=== PATIENT | male | born 1950 | race Caucasian/White ===

== ENCOUNTER → 2024-09-11 06:22 | Day surgery (SDC) | payer MEDICARE, SELFPAY | LOC: GI 06:22 | PROVIDERS: ATTENDING PHYSICIAN Internal Medicine; FAMILY PHYSICIAN Family Medicine | DX: Z12.11 Encounter for screening for malignant neoplasm of colon (principal); R19.5 Other fecal abnormalities; Z53.8 Procedure and treatment not carried out for other reasons; K57.30 Diverticulosis of large intestine without perforation or abscess without bleeding | CPT/HCPCS: G0121 ==

== ENCOUNTER → 2024-09-12 06:18 | Day surgery (SDC) | payer MEDICARE, SELFPAY | LOC: GI 06:18 | PROVIDERS: ATTENDING PHYSICIAN Internal Medicine Gastroenterology | DX: Z12.11 Encounter for screening for malignant neoplasm of colon (principal); R19.5 Other fecal abnormalities; K57.30 Diverticulosis of large intestine without perforation or abscess without bleeding; K64.8 Other hemorrhoids; K55.20 Angiodysplasia of colon without hemorrhage; D12.0 Benign neoplasm of cecum | CPT/HCPCS: 45385; 88305 ==

== ENCOUNTER 2024-12-17 06:33 | Day surgery (SDC) | payer MEDICARE, SELFPAY ==
[2024-12-17 08:53] VITALS: BMI 16.9
[2024-12-17 08:54] VITALS: BMI 16.9
[2024-12-17 12:15] VITALS: BP 143/74
[2024-12-17 12:30] VITALS: BP 143/89
[2024-12-17 12:39] VITALS: BP 124/75
== END 2024-12-17 13:03 | disposition home or self-care (01) ==
LOC: SDS 06:33
PROVIDERS: ATTENDING PHYSICIAN Internal Medicine Gastroenterology; FAMILY PHYSICIAN Family Medicine
DX: D12.2 Benign neoplasm of ascending colon (principal); D12.3 Benign neoplasm of transverse colon; D12.5 Benign neoplasm of sigmoid colon; K63.5 Polyp of colon; K57.30 Diverticulosis of large intestine without perforation or abscess without bleeding; K64.0 First degree hemorrhoids; Q43.8 Other specified congenital malformations of intestine
CPT/HCPCS: 45385; 45390; 88305; C1726

== ENCOUNTER → 2025-03-04 13:57 | Outpatient (REF) | payer MEDICARE, SELFPAY | LOC: RAD 13:57 | PROVIDERS: ATTENDING PHYSICIAN Family Medicine | DX: E78.5 Hyperlipidemia, unspecified (principal); R97.20 Elevated prostate specific antigen [PSA]; N40.0 Benign prostatic hyperplasia without lower urinary tract symptoms | CPT/HCPCS: 76872 ==

== ENCOUNTER 2025-05-19 23:31 | Inpatient (IN) | payer MEDICARE, SELFPAY ==
[2025-05-19] VITALS (9 sets, daily range): BP systolic 99–146; BP diastolic 58–101; BMI 17.7
[2025-05-19 17:54] LABS: Hematocrit 43.9 % (39.0-52.0); Hemoglobin 14.7 g/dL (13.0-18.0); Mean Corp Hgb Conc. 33.5 g/dL (33.0-37.0); Mean Corpuscular Volume 86.4 fL (80.0-94.0); Nucleated Red Blood Cells % 0 % (-); Platelet Count 120 10^3/uL (130-400); Red Cell Dist. Width 13.4 % (11.5-14.5)
[2025-05-19 18:09] LABS: ALT (SGPT) 36 U/L (0-50); AST (SGOT) 77 U/L (17-59); Albumin 4.5 g/dl (3.5-5.0); Alkaline Phosphatase 67 U/L (38-126); Blood Urea Nitrogen 15 mg/dl (9-20); Calcium 9.2 mg/dl (8.4-10.2); Carbon Dioxide 23 mmol/L (22-30); Chloride 105 mmol/L (98-107); Glucose 145 mg/dl (70-99); Potassium 4.1 mmol/L (3.5-5.1); Sodium 138 mmol/L (135-145); Total Protein 7.4 g/dl (6.3-8.2); eGFR > 60.00
[2025-05-19 18:10] LABS: Troponin I < 0.012 ng/ml
[2025-05-19] MEDS: DUONEB 3 ML INH (20:08)
--- NOTE | 2025-05-19 20:11 | ED.GENMED ---
History of Present Illness
General
Chief Complaint: Breathing Problem
Source: patient
Exam Limitations: none
Time Seen by Provider: 05/19/25 19:48
History of Present Illness
History of Present Illness:
75yoM with a history of COPD and prior history of lung cancer currently in remission presenting for evaluation of shortness of breath. Patient reports cough, wheezing, and shortness of breath over the past week. Cough is productive of green
sputum. He has been having difficulty sleeping due to his symptoms and will wake up in the middle of the night short of breath. He is also having some right-sided chest discomfort with coughing. He had chills earlier but denies any fevers. He
has a history of bronchitis and this feels similar. He has been using his Anoro inhaler without much relief.
Past History
Past History
ED Past Medical History: Other (IBS, back pain)
Social History
Tobacco: Smoker
Living: with family
Employment: Retired
Phy Exam
General Physical Exam
General Presentation: no apparent distress
General Skin: warm and dry
General Habitus: normal and elderly
General Mental: alert
ENT Exam
ENT Exam: normocephalic
Cardiovascular Exam
Cardiovascular Exam: no edema and tachycardia
Pulmonary Exam
Pulmonary Exam: generalized wheezing and other (Rhonchi and wheezing noted)
Neurological Exam
Neurological Exam: alert
Lexi Coma Scale
Eye Opening: Spontaneous
Verbal Response: Oriented
Motor Response: Obeys Commands
GCS Total Score: 15
Skin Exam
Skin Exam: normal color and warm/dry
Psychiatric Exam
Psychiatric Exam: normal mood/affect
Scores
Heart Failure Risk
Heart Failure Risk Score: Not Applicable
Course
Orders/Labs/Results
Orders:
Orders
05/19/25 17:33
Electrocardiogram (*1) Urgent
Reason for Study: Other
Other Reason for Exam: Respiratory Distress
EKG- Treatment ONCE
CR Chest - 2 Views Urgent
Comment:
Reason For Exam: respiratory distress
05/19/25 17:38
Complete Blood Count/With Diff Urgent
Comprehensive Metabolic Panel Urgent
NT-proBNP Urgent
Troponin I Urgent
05/19/25 19:54
Cardiac Monitoring- Treatment ONCE
05/19/25 20:02
CT Chest PE Study Urgent
Comment:
Reason For Exam: SOB, abnormal CXR
Ipratropium/Albuterol Sulfate [Duoneb] 3 ml INH R NOW STA
05/19/25 20:18
COVID-19 Antigen Urgent
Source: Nasal Swab
Influenza A+B Rapid Molecular Urgent
GERMAN Source: Nasal Swab
Specimen Description:
05/19/25 22:06
Cefepime HCl [Maxipime] 2,000 mg IV NOW STA
05/19/25 22:27
Cefepime HCl [Maxipime] 2,000 mg .ROUTE .STK-MED ONE
05/19/25 23:14
Procalcitonin Routine
If negative, will antibiotics be d/c'd or not started: Yes
Does the patient have renal or hepatic impairment?: No
Any recent (w/in 48 hrs) physiologic stress (CPR, rhabdo): No
05/19/25 23:19
Admit/Transfer Patient As Directed
Co-Sign Provider:
Level of Care: Inpatient admission
Assign to:: Medical/Surgical
Physician / Group: [email or web address]
Diagnosis: Influenza B, PNA, COPD
Reason for Hospitalization: Influenza B, PNA, COPD
Expected length of stay greater than two midnights?: Yes
ELOS- Estimated Length of Stay in days: 5
I certify the patient meets the requirements for IP care: Yes
05/19/25 23:22
Code Status As Directed
Resuscitation Status: Full Code
Abnormal Lab Results
05/19/25
17:38
Plt Count 120 L 10^3/uL
(130-400)
MPV 11.2 H fL
(7.4-10.4)
Absolute Lymphs (auto) 0.6 L 10^3/uL
(1.2-3.4)
Neutrophils % 81.0 H %
(42.2-75.2)
Lymphocytes % 9.6 L %
(20.5-51.1)
Glucose 145 H mg/dl
(70-99)
Total Bilirubin 1.4 H mg/dl
(0.2-1.3)
AST 77 H U/L
(17-59)
05/19/25 17:38
05/19/25 17:38
Vital Signs
Initial and Last Documented VS:
Initial Vital Signs
Temp Pulse Resp BP Pulse Ox
98.6 F 84 22 146/98 96
05/19/25 17:30 05/19/25 17:30 05/19/25 17:30 05/19/25 17:30 05/19/25 17:30
Last Documented Vital Signs
Temp Pulse Resp BP Pulse Ox
98.6 F 98 24 108/83 92
05/19/25 17:30 05/20/25 00:00 05/20/25 00:00 05/19/25 23:00 05/20/25 00:00
MDM/Problems Addressed
Differential Diagnosis Includes:
75yoM here with SOB and cough x 1 week. Hx of COPD and prior hx of lung cancer. He is tachycardic with HR in the 100-110 range on initial exam. There is wheezing and rhonchi on lung exam. Differential diagnosis includes but is not limited to: viral
illness, bronchitis, pneumonia, COPD exacerbation
Initial ED plan: Workup initiated in triage. EKG shows what appears to be multifocal atrial tachycardia. Troponin WNL. CXR shows a RUL consolidation per my interpretation. Will check COVID/flu swab and proceed with CTA chest. DuoNeb and reassess.
*Pulse Oximetry
SaO2: 96
Oxygen Mode of Delivery: Room air
Patient hypoxic: no (96%)
*EKG
Interpreted by ED Provider?: Yes
EKG Intrepretation Date: 05/19/25
Heart Rate: 117
Rate: tachycardiac
Rhythm: other (Suspected multifocal atrial tachycardia)
[place]: left axis deviation
Interval: normal interval
QRS Pattern: normal QRS
Ischemia: T-wave inversion (aVL)
*Critical Care Note
Total Time (30-74mins, 75-104mins- exclusive of procedures): Not Applicable
Update Note
Update Note:
Patient is positive for influenza B. CT shows complete occlusion of R upper lobe bronchus and R middle lobe bronchus with postobstructive atelectasis of R upper lobe and pneumonia of R middle lobe. IV cefepime and vancomycin ordered. Patient
admitted for further management.
ED Attending Note
-
Portions of this chart may have been created with voice recognition software.� Occasional wrong word or��sound alike� substitutions may have occurred due to the inherent limitations of voice recognition software.
Discharge Plan
Departure
Patient Disposition: Admit
Date of Disposition: 05/19/25
Time of Disposition: 22:42
Presentation/result/management discussed w/ accepting MD/DO: Hospitalist
Discharge Problem:
Influenza B, Right middle lobe pneumonia, Bronchial obstruction
Interventions
Interventions:
*Risk Screen - Suicide Last Done: 05/19/25 17:30
*Neglect/Abuse Screening Last Done: 05/19/25 17:30
ED- Cardiac Assessment Last Done: 05/19/25 23:02
ED- Pulmonary Assessment Last Done: 05/19/25 23:02
[2025-05-19 20:39] LABS: COVID-19 Antigen Negative (Negative)
[2025-05-19] MEDS: MAXIPIME 2000 MG IV (22:27)
--- NOTE | 2025-05-19 23:16 | HPS.HSE ---
Family Physician
-
Family Physician: John Hogue, DO
Chief Complaint
-
SoB, productive cough
History of Present Illness
HPI
75M HX Ca Lung in remission, COPD, not on Home O2 seen at ER:
- for evaluation of shortness of breath, cough, wheezing over the past week.
- wake up in the middle of the night short of breath
- having some right-sided chest discomfort with coughing.
- chills earlier but denies any fevers.
- HX bronchitis and this feels similar- using his Anoro inhaler without much relief.
Medical History
Past Medical History
Past Medical History: Reports Cancer (lung CA in remission ), COPD, Hypercholesterolemia, Hypothyroidism and Psychiatric (anxiety )
Past Surgical History: Reports Other
Social History
Alcohol: None
Family History
Family History: Not pertinent
Allergies / Home Medications
Allergies reflects when Allergies were last updated in [facility].
Home Medications with original date entered in [facility]
Allergy/Medication List:
Allergies
Allergy/AdvReac Type Severity Reaction Status Date / Time
acetaminophen (From Percocet) Allergy Unknown Verified 12/17/24 08:24
oxycodone (From Percocet) Allergy Itching Verified 12/17/24 08:24
Home Medications
alprazolam 0.25 mg tablet 0.25 mg PO DAILY 12/17/24
bisacodyl 5 mg tablet,delayed release 15 mg PO ONCE PRN constipation 12/17/24
ibuprofen 400 mg tablet 400 mg PO Q48H 12/17/24
levothyroxine 112 mcg tablet 112 mcg PO DAILY 12/17/24
levothyroxine 125 mcg tablet 125 mcg PO DAILY 12/17/24
rosuvastatin 20 mg tablet 20 mg PO DAILY 12/17/24
umeclidinium 62.5 mcg-vilanterol 25 mcg/actuation powdr for inhalation (Anoro Ellipta) 1 inhalation DAILY 12/17/24
Review of Systems
-
Constitutional: Reports No Symptoms
EENT: Reports No Symptoms
Respiratory: Reports See HPI and Trouble Breathing
Cardiac: Reports No Symptoms
Abdomen/GI: Reports No Symptoms
: Reports No Symptoms
Musculoskeletal: Reports No Symptoms
Skin: Reports No Symptoms
Neurological: Reports No Symptoms
Endocrine: Reports No Symptoms
Hematologic/Lymphatic: Reports No Symptoms
Psych: Reports No Symptoms
Physical Exam
Vital Signs
Vital Signs
Temp Pulse Resp BP Pulse Ox
98.6 F 101 26 99/58 92
05/19/25 17:30 05/19/25 22:15 05/19/25 22:15 05/19/25 22:00 05/19/25 22:15
Physical Exam
General: Well Developed, Well Nourished and No Apparent Distress
HEENT: NormoCephalic, Moist mucous membranes and Atraumatic
Respiratory: Clear
Cardiac: S1/S2 and Regular Rhythm; No Murmur or Rub
GI: Soft, Non Tender, Non Distended and Normal Bowel Sounds; No Organomegaly
Rectal: Deferred by Provider
Musculoskeletal: No Clubbing, No Cyanosis and No Edema
Skin: No Rash
Neuro: Nonfocal/grossly intact
Laboratory Results
-
05/19/25 17:38
05/19/25 17:38
Laboratory Results
Total Bilirubin 1.4 mg/dl (0.2-1.3) H 05/19/25 17:38
AST 77 U/L (17-59) H 05/19/25 17:38
ALT 36 U/L (0-50) 05/19/25 17:38
Alkaline Phosphatase 67 U/L (38-126) 05/19/25 17:38
Troponin I < 0.012 ng/ml 05/19/25 17:38
Data Reviewed
-
CT Scan: Report Reviewed by me
Lab Data: Labs Reviewed by me
Impression/Plan
-
Vital Signs
Temp Pulse Resp BP Pulse Ox
98.6 F 101 26 99/58 92
05/19/25 17:30 05/19/25 22:15 05/19/25 22:15 05/19/25 22:00 05/19/25 22:15
Laboratory Tests
05/19/25
17:38
Creatinine 0.7
eGFR > 60.00
Total Bilirubin 1.4 H
AST 77 H
ALT 36
Alkaline Phosphatase 67
Troponin I < 0.012
[id number] Pept 523
CT:
-Complete occlusion of the R upper lobe bronchus
- postobstructive atelectasis in the R upper lobe with severe postobstructive R middle lobe pneumonia.
- severe hyperinflation of the right lower lobe and left lung containing mild centrilobular emphysema.
- Moderate to severe left to right mediastinal shift secondary to right lung volume loss.
- Mild pneumonia in the lingula and left lower lobe.
Layering secretions in the trachea (possibly secondary to aspiration).
04/21/20 TTE
Normal biventricular size and systolic function without regional wall motion abnormality.
Thickened mitral valve leaflets, with prolonged anterior leaflet with prolapse present.
Moderate, eccentric mitral regurgitation.
Compared to prior study of 03/07/07, the mitral regurgitation is
NO PRIR 75M HX hospitalist admission:
ASSESSMENT & PLAN
Pending Rx reconciliation
Acute viral Influenza B POS
NEG Covid
Nl eGFR
- start Tamiflu 75mg BID
CT suggest PNA suspect post obstructive ( RUL, RML)
POS productive cough and SOB
HX Lung CA in remission ??
- cont. IV CFP and Vancomycin for now
- check PCT
- Incentive spirometry
HX COPD
- DuoNebs qid and PRN
- c/w Ano Eclipta
Hypothyroid
- c/w LT4
HLD
- on Stain
Anxiety
- on Xanax daily
DVT Px: LMWH
Full code
IP MS
[2025-05-20] MEDS: TAMIFLU 75 MG PO ×3 (00:53→20:52)
[2025-05-20] MEDS: VANCOCIN 530 MG IV (00:54)
[2025-05-20 01:40] LABS: Procalcitonin 0.31 ng/ml (0.0-0.25)
[2025-05-20] MEDS: MAXIPIME 1000 MG IV ×3 (05:59→17:40)
[2025-05-20 06:36] LABS: Hematocrit 37.9 % (39.0-52.0); Hemoglobin 12.8 g/dL (13.0-18.0); Mean Corp Hgb Conc. 33.8 g/dL (33.0-37.0); Mean Corpuscular Volume 85.2 fL (80.0-94.0); Nucleated Red Blood Cells % 0 % (-); Platelet Count 117 10^3/uL (130-400); Red Cell Dist. Width 13.2 % (11.5-14.5)
[2025-05-20 06:45] LABS: Blood Urea Nitrogen 15 mg/dl (9-20); Calcium 8.9 mg/dl (8.4-10.2); Carbon Dioxide 23 mmol/L (22-30); Chloride 109 mmol/L (98-107); Estimated Creatinine Clearance 103 ml/min; Glucose 115 mg/dl (70-99); Potassium 4.0 mmol/L (3.5-5.1); Sodium 137 mmol/L (135-145); eGFR > 60.00
[2025-05-20] MEDS: DUONEB 3 ML INH ×4 (07:47→19:23)
[2025-05-20 08:22] VITALS: BP 138/80
--- NOTE | 2025-05-20 08:50 | PHA.VAN.IN ---
Assessment
- Assessment
Renal Function: Appears similar to baseline
Concomitant Antimicrobials: cefepime
AUC Dosing Plan
- Dosing Variables
Dosing Weight (kg): 91 (IBW for BMI < 18.5)
Dosing CrCl (ml/min): 103
Vd coefficient (L/kg): 0.7
- Empiric Dosing
Initial / Loading Dose: 1500mg - 05/20 00:54
Maintenance Regimen: Vanc 1250mg Q12H starting at 1800
Estimated AUC (mcg*h/mL): 466
Estimated Peak (mcg*h/mL): 29.7
Estimated Trough (mcg/ml): 11.6
Estimated Half Life (H): 7.7
- Monitoring
No levels ordered at this time: consider levels in next few days
MRSA Screen: Ordered per protocol
Pharmacokinetics Vancomycin I
- -
Patient Age: 75
Patient Sex: Male
Vancomycin Day #: 1
Indication: Pulmonary/Respiratory
Requesting Provider: Dr. Humphreys
Pertinent Antimicrobial Allergies:
no pertinent antibiotic allergies
Height / Weight:
Height 6 ft 6 in
Actual Weight 69.5 kg
IBW in k.4
Pertinent Past Medical History: BMI ~17.7, Lung cancer (remission)
- Vital Signs / Lab Results
Temp Pulse Resp BP Pulse Ox
98.1 F 70 12 138/80 96
05/20/25 08:22 05/20/25 08:22 05/20/25 08:22 05/20/25 08:22 05/20/25 08:22
Lab Results - Hematology
05/19/25 05/20/25
17:38 06:05
WBC 6.5 6.9
Lab Results - Chemistry
05/19/25 05/20/25
17:38 06:05
BUN 15 15
Creatinine 0.7 0.6 L
Estimated Creat Clear 103
Albumin 4.5
05/20/25
01:00
Lactic Acid 1.4
Microbiology Results
05/19/25 20:18 Influenza Types A & B (BRAULIO) - Final
Nasal Swab Influenza B Positive, NAAT
--- NOTE | 2025-05-20 09:28 | CON.PUL ---
Consultation
Consultation Request
Date/Time Consultation Requested: 05/20/202524
Date/Time Consultation Performed: 05/20/2025854
Requesting Provider: Dr. Humphreys
Performing Provider: Dr. Curry
Reason for Consultation: SOB/PNA
Medical History
-
Chief Complaint: SOB
History of Present Illness:
75-year-old M with PMHx of R-sided NSCLC in remission, anxiety, inflammatory bowel disease, Hx of liver abscess, hypothyroidism, HLD and prediabetes who p/w worsening SOB. He uses Anoro at home and his SOB worsened despite this. He has been
coughing as well. In the ER he was afebrile, HR 84, BP 146/98, RR 22 and SpO2 96% on room air. WBC WNL at 6.5, plt 120, troponin negative x1, procal 0.31, and flu swab was positive for Flu-B. CXR showed severe RUL volume loss with a RUL
consolidation. CT chest showed RUL + RML bronchus occlusion, with left to right mediastinal shift due to atelectasis. Pt given cefepime and DuoNebs in ER, and admitted to the hospitalist service with pulmonary consulted for further recommendations.
PMHx: Right lung NSCLC, Hx of COPD, IBD, anxiety, colonic polyps, Hx of hepatic abscess, DDD s/p lumbar discectomy x2, sigmoid diverticulosis, hypothyroidism, HLD, prediabetes
PSHx: Hernia repair, discectomy x2, right eye cataract surgery, detached retina surgery (right eye), oral surgery, prostate biopsy (negative for malignancy - [facility])
Past Medical History
Past Medical History: Other (Above as per HPI)
Past Surgical History: Other (Above as per HPI)
Social History
Tobacco: Former Smoker (quit smoking at age 54)
Alcohol: Occasional
Drug: Marijuana (has a THC card)
Family History
Family History: Cancer (Mother and brother: lung cancer)
Allergies / Home Medications
Allergies
Allergy/AdvReac Type Severity Reaction Status Date / Time
acetaminophen (From Percocet) Allergy Unknown Verified 12/17/24 08:24
oxycodone (From Percocet) Allergy Itching Verified 12/17/24 08:24
Home Medications
�Medication �Instructions �Recorded �Confirmed �Last Taken �Type
alprazolam 0.25 mg tablet 0.25 mg PO DAILYPRN PRN anxiety 12/17/24 05/20/25 12/16/24 21:00 History
ibuprofen 400 mg tablet 400 mg PO DAILYPRN PRN mild pain 12/17/24 05/20/25 12/13/24 History
levothyroxine 112 mcg tablet 112 mcg PO Q48H 12/17/24 05/20/25 12/17/24 06:00 History
levothyroxine 125 mcg tablet 125 mcg PO Q48H 12/17/24 05/20/25 12/16/24 06:00 History
rosuvastatin 20 mg tablet 20 mg PO DAILY 12/17/24 05/20/25 12/16/24 20:00 History
umeclidinium 62.5 mcg-vilanterol 1 inh inhalation R QPM 12/17/24 05/20/25 12/16/24 History
25 mcg/actuation powdr for
inhalation (Anoro Ellipta)
alfuzosin 10 mg tablet,extended 10 mg PO DAILY 05/20/25 05/20/25 Unknown History
release 24 hr
Review of Systems
-
History Source: Patient
All other systems: Negative unless noted
Vitals / Labs / Diagnostic Testing
Vital Signs
Temp Pulse Resp BP Pulse Ox
98.1 F 70 12 138/80 96
05/20/25 08:22 05/20/25 08:22 05/20/25 08:22 05/20/25 08:22 05/20/25 09:38
Lab Data
05/20/25 06:05
05/20/25 06:05
Microbiology
05/19/25 20:18 Nasal Swab Influenza Types A & B (BRAULIO) - Final
Influenza B Positive, NAAT
Diagnostic Testing:
Physical Exam
-
HEENT: Normocephalic and Anicteric
Cardiovascular: S1/S2 and Peripheral Edema (negative)
Respiratory: Wheeze (negative), Rales (R hemithorax), Rhonchi (negative), Non-Labored Respirations and Other (bronchial breath sounds in RUL)
GI: Soft, Non Distended, Non Tender and Normal Bowel Sounds
Neurology: AO x 3 and Tremors (negative)
Skin: Warm and Dry
General: Respiratory Distress (negative), Comfortable, Fever (negative) and Chills (negative)
Assessment
-
Assessment: 75-year-old M with PMHx of R-sided NSCLC in remission, anxiety, inflammatory bowel disease, Hx of liver abscess, hypothyroidism, HLD and prediabetes who p/w worsening SOB. He uses Anoro at home and his SOB worsened despite this. He
has been coughing as well. In the ER he was afebrile, HR 84, BP 146/98, RR 22 and SpO2 96% on room air. WBC WNL at 6.5, plt 120, troponin negative x1, procal 0.31, and flu swab was positive for Flu-B. CXR showed severe RUL volume loss with a RUL
consolidation. CT chest showed RUL + RML bronchus occlusion, with left to right mediastinal shift due to atelectasis. Pt given cefepime and DuoNebs in ER, and admitted to the hospitalist service with pulmonary consulted for further recommendations.
Chronic conditions HYDRAULIC SPECIALIST: Right lung NSCLC, Hx of COPD, IBD, anxiety, colonic polyps, Hx of hepatic abscess, DDD s/p lumbar discectomy x2, sigmoid diverticulosis, hypothyroidism, HLD, prediabetes
Impression:
#Right upper lobe + right middle lobe atelectasis either due to tumor versus mucous plugging
#Right upper lobe pneumonia with post-obstructive component
#Acute influenza B
#Hx of COPD
#Hx of right sided NSCLC in remission
#Family Hx of lung cancer (mother and brother)
#Elevated T bili
#Anxiety
Plan:
- Pulmonary toilet is carlson
- Add nebulized 3% to be given with nebulized albuterol QID; start chest PT
- Patient takes Anoro at home and this can be resumed
- Aspiration precautions
- Maintain SpO2 88-95% with supplemental O2 as needed
- Serial CXR to assess for improvement in RUL atelectasis; if any recent imaging can be obtained that would be helpful
- If RUL remains atelectatic then he would benefit from bronchoscopy
- Continue oseltamavir
- Given the likelihood of postobstructive pneumonia, continue with cefepime + vancomycin and check respiratory culture
- Trend WBC and monitor temperature curve
- prn nebulized bronchodilators - not currently bronchospastic
- Incentive spirometer encouraged q1hr while awake
- Replete electrolytes with K>4, Mg>2
- Trend H/H and transfuse if needed to keep Hb>7g/dL; keep plt>20k, unless there is concern for bleeding then keep plt>50k
- Maintain euglycemia with goal BG >100 and <180
- DVT ppx: LMWH
Pulmonary service will continue to follow along.
Data:
CTA Chest 05/19/2025:
1. COMPLETE OCCLUSION of the RIGHT UPPER LOBE BRONCHUS (either malignancy or endobronchial secretions/mucous plugging) with COMPLETE POSTOBSTRUCTIVE ATELECTASIS of the RIGHT UPPER LOBE.
2. Complete occlusion of the right middle lobe bronchus with severe postobstructive airspace consolidation most suggestive of SEVERE POSTOBSTRUCTIVE RIGHT MIDDLE LOBE PNEUMONIA.
3. Severe hyperinflation of the right lower lobe and left lung containing mild centrilobular emphysema.
4. Moderate to severe left to right mediastinal shift secondary to right lung volume loss.
5. Mild pneumonia in the lingula and left lower lobe.
6. Layering secretions in the trachea (possibly secondary to aspiration).
Total time spent today was 62 minutes for this encounter. Time includes reviewing laboratory test/imaging results, reviewing pertinent medical records, obtaining and reviewing medical history, performing an appropriate exam, ordering medications,
tests and procedures. Time also includes documentation of this encounter, coordinating patient care and communicating with other healthcare professionals. Total time does not include separately billed tests performed on this date of service.
Patient seen and evaluated on 05/20/2025
[2025-05-20 09:40] VITALS: BP 105/77; PULSE 86; O2SAT 96
[2025-05-20] MEDS: SYNTHROID 125 MCG PO (09:49)
[2025-05-20] MEDS: MUCINEX 600 MG PO ×2 (09:49→20:52)
[2025-05-20] MEDS: CRESTOR 20 MG PO (09:49)
[2025-05-20] MEDS: SODIUM CHLORIDE 3% FOR INHALATION 1 VIAL INH ×3 (11:28→19:23)
--- NOTE | 2025-05-20 11:53 | W.PN.HOSP.TC ---
Today's Communication/Plan
-
Continue with antibiotics
Obtain sputum cultures and MRSA screen
Await pulmonary input
Assessment / Plan
Assessment / Plan
Acute viral Influenza B POS
NEG Covid
Nl eGFR
- cw Tamiflu 75mg BID
CT suggest PNA suspect post obstructive ( RUL, RML)
POS productive cough and SOB
HX Lung CA in remission ??
- cont. IV CFP and Vancomycin for now
- elevated PCT
- Incentive spirometry
- Patient says he had a follow-up imaging 1 of month ago and reviewed by his primary oncologist at [facility] and apparently no recurrence. Obtained all information
HX COPD
- No exacerbation
- DuoNebs qid and PRN
- c/w Ano Eclipta
Hypothyroid
- c/w LT4
HLD
- on Stain
Anxiety
- on Xanax daily
DVT Px: LMWH
Full code
IP MS
Will call primary Onc at [facility] for more info
Total time spent on today's encounter was 52 minutes which included time spent in counseling the patient/family regarding diagnosis and treatment plan as listed above, goals of care, and symptom management. Case was discussed with nursing staff,
specialists, and care coordinators/case management. All labs and imaging personally reviewed by me. Remainder the time spent in detailed review of previous records, lab data, imaging, and other medical provider documentation.
Anticipated Discharge: 24 - 48 hours
Subjective/Interval History
-
Date of Service: May 20, 2025
Complains of lack of sleep the last 4 days with his respiratory symptoms.
Had progressive cough with productive phlegm which is green in color. He feels short of breath with exertion. Right-sided pleuritic chest pain on and off . No nausea vomiting.
Denies any fever chills.
Objective Data
-
Labs:
Laboratory Results
05/20/25
06:05
WBC 6.9
Hgb 12.8 L
Hct 37.9 L
Plt Count 117 L
Sodium 137
Potassium 4.0
Chloride 109 H
Carbon Dioxide 23
BUN 15
Creatinine 0.6 L
Glucose 115 H
Calcium 8.9
Vital Signs:
Vital Signs
Temp Pulse Resp BP Pulse Ox
98.1 F 106 18 138/80 96
05/20/25 08:22 05/20/25 11:46 05/20/25 11:46 05/20/25 08:22 05/20/25 11:46
Physical Exam
-
General: Comfortable
HEENT: Moist Mucous Membranes
Respiratory: Non Labored Respirations and Other (Bronchial breathing right upper lobe); Negative Wheezes or Accessory Resp Muscle Use
Cardiac: Regular Rhythm and S1/S2
Neuro: AO x 3
Data Reviewed
-
CT Scan: Report Reviewed by me
Labs: Labs Reviewed by me
--- NOTE | 2025-05-20 12:26 | RESPNOTE ---
patient wanted to make known his physicians for Lung Cancer treatment:
Pulmonary- Dr. Gonsalves
Oncology- Dr. De La Cruz
[2025-05-20] MEDS: TESSALON PERLES 100 MG PO (13:20)
[2025-05-20 15:00] VITALS: BP 121/71
[2025-05-20] MEDS: LOVENOX 40 MG SC (17:40)
[2025-05-20] MEDS: VANCOCIN 275 MG IV (17:41)
[2025-05-20] MEDS: NON-FORMULARY ITEM 1 UNIT INH (19:28)
[2025-05-20] MEDS: BENADRYL 50 MG PO (20:52)
[2025-05-20 23:19] VITALS: BP 109/77
[2025-05-21] MEDS: STERILE WATER FOR INJECTION 10 ML IV ×5 (00:14→23:02)
[2025-05-21] MEDS: MAXIPIME 1000 MG IV ×5 (00:14→23:02)
[2025-05-21] MEDS: MOTRIN 200 MG PO (00:20)
[2025-05-21] MEDS: SYNTHROID 125 MCG PO (06:02)
[2025-05-21] MEDS: VANCOCIN 275 MG IV (06:03)
[2025-05-21] MEDS: DUONEB 3 ML INH (07:57)
[2025-05-21] MEDS: SODIUM CHLORIDE 3% FOR INHALATION 1 VIAL INH ×4 (07:57→19:24)
[2025-05-21] MEDS: MUCINEX 600 MG PO ×2 (07:59→20:16)
[2025-05-21 08:00] VITALS: BP 127/82
[2025-05-21] MEDS: TAMIFLU 75 MG PO ×2 (08:00→20:16)
[2025-05-21] MEDS: CRESTOR 20 MG PO (08:00)
--- NOTE | 2025-05-21 08:55 | W.PN.PUL3 ---
Today's Communication / Plan
-
Patient has chronic right upper lobe + right middle lobe atelectasis as seen on prior CT chest imaging from 04/08/2025 (I personally reviewed these images today via patient's portal from [place])
Continue with Tamiflu
Continue antibiotics and would recommend a 7-10-day course
No need for repeat imaging at this time given he has chronic atelectatic changes which appear stable
Recommend outpatient follow-up with his automatic developer at [facility] with repeat imaging in 4 to 6 weeks to assess for improvement in his RML pneumonia
Continue with optimizing pulmonary toilet with nebulized 3% with nebulized albuterol and Acapella
Aspiration precautions
Pulmonary service will continue to follow along; repeat CXR tomorrow and if stable and he feels well during activity, he might be able to go home tomorrow or the next day
Assessment
-
Assessment: 75-year-old M with PMHx of R-sided NSCLC in remission, anxiety, inflammatory bowel disease, Hx of liver abscess, hypothyroidism, HLD and prediabetes who p/w worsening SOB. He uses Anoro at home and his SOB worsened despite this. He
has been coughing as well. In the ER he was afebrile, HR 84, BP 146/98, RR 22 and SpO2 96% on room air. WBC WNL at 6.5, plt 120, troponin negative x1, procal 0.31, and flu swab was positive for Flu-B. CXR showed severe RUL volume loss with a RUL
consolidation. CT chest showed RUL + RML bronchus occlusion, with left to right mediastinal shift due to atelectasis. Pt given cefepime and DuoNebs in ER, and admitted to the hospitalist service with pulmonary consulted for further recommendations.
Chronic conditions [employer]: Right lung NSCLC, Hx of COPD, IBD, anxiety, colonic polyps, Hx of hepatic abscess, DDD s/p lumbar discectomy x2, sigmoid diverticulosis, hypothyroidism, HLD, prediabetes
Impression:
#Right upper lobe + right middle lobe atelectasis either due to tumor versus mucous plugging - suspect the latter given chronic atelectasis when compared to outside hospital imaging
#Right middle lobe pneumonia with post-obstructive component
#Acute influenza B
#Hx of right sided NSCLC in remission s/p concurrent chemotherapy + proton radiation therapy and immunotherapy with Imfinzi
#Chronic posttreatment atelectasis of the right upper lobe + right middle lobe (per outpatient CT chest performed 04/08/2025 as well as prior CT chest on 12/03/2024
#COPD on Anoro as an outpatient
#Family Hx of lung cancer (mother and brother)
#Elevated T bili
#Anxiety
Plan:
- Pulmonary toilet is carlson
- Continue nebulized 3% to be given with nebulized albuterol QID; continue chest PT with Acapella
- Patient takes Anoro at home and this can be resumed
- Aspiration precautions
- Mucinex
- Maintain SpO2 88-95% with supplemental O2 as needed
- I personally reviewed the patient's images of his prior CT chest on 04/08/2025, and there is similar right upper lobe bronchus + right middle lobe bronchus occlusion now as he did prior, although he now has a right middle lobe consolidative
opacity which is new. No need to recheck CT chest imaging now given the chronicity of his right upper lobe + right middle lobe atelectasis.
- Continue with course of Tamiflu and finish off a 7-10 day course of antibiotics and rec'd follow up with his automatic developer at [facility] with repeat imaging in 4-6 weeks to assess for improvement of his RML pneumonia
- Given the chronicity of his right hemithorax atelectatic changes, no need for bronchoscopy at this time
- Continue oseltamavir
- Given he has postobstructive RML pneumonia, continue with cefepime + vancomycin and follow up respiratory culture (collected 05/20 and shows NGTD)
- Check urine antigens for legionella and Strep PNA
- Trend WBC and monitor temperature curve
- Patient is irregular today on cardiac exam, and EKG on 05/19 showed concern for A-fib vs atrial flutter with occasional PVCs
- Would recommend cardiology consult as he may need Eliquis as he has a [id number] score of 2
- prn nebulized bronchodilators - not currently bronchospastic
- Incentive spirometer encouraged q1hr while awake
- Replete electrolytes with K>4, Mg>2
- Trend H/H and transfuse if needed to keep Hb>7g/dL; keep plt>20k, unless there is concern for bleeding then keep plt>50k
- Maintain euglycemia with goal BG >100 and <180
- DVT ppx: LMWH
Pulmonary service will continue to follow along. He will follow-up with his automatic developer and Oncologist (Dr. Miguel Parker) at [facility]
Data:
CTA Chest 05/19/2025:
1. COMPLETE OCCLUSION of the RIGHT UPPER LOBE BRONCHUS (either malignancy or endobronchial secretions/mucous plugging) with COMPLETE POSTOBSTRUCTIVE ATELECTASIS of the RIGHT UPPER LOBE.
2. Complete occlusion of the right middle lobe bronchus with severe postobstructive airspace consolidation most suggestive of SEVERE POSTOBSTRUCTIVE RIGHT MIDDLE LOBE PNEUMONIA.
3. Severe hyperinflation of the right lower lobe and left lung containing mild centrilobular emphysema.
4. Moderate to severe left to right mediastinal shift secondary to right lung volume loss.
5. Mild pneumonia in the lingula and left lower lobe.
6. Layering secretions in the trachea (possibly secondary to aspiration).
CT chest with IV contrast 04/08/2025 (performed at [facility] -compared to prior CT chest on 12/03/2024): Mild mucus is identified within the trachea as well as the right mainstem bronchus. Similar partial atelectasis of the right upper lobe and
atelectatic changes in the right middle lobe. Partially likely to right sided pleural fluid, likely posttreatment, and is stable. Background changes of moderate centrilobular emphysema as well as peribronchial thickening consistent with chronic
bronchitis. Upper esophagus is dilated and air-filled as well as debris seen and is deviated to the right likely due to posttreatment effect. Multiple low-attenuation liver lesions are again identified, statistically cysts, however few of these
are too small to characterize.
Impression: No evidence of new or progressive disease. Stable posttreatment changes in the right hemithorax.
Total time spent today was 37 minutes for this encounter. Time includes reviewing laboratory test/imaging results, reviewing pertinent medical records, obtaining and reviewing medical history, performing an appropriate exam, ordering medications,
tests and procedures. Time also includes documentation of this encounter, coordinating patient care and communicating with other healthcare professionals. Total time does not include separately billed tests performed on this date of service.
Subjective Data
-
Date of Service:
Date of Service: May 21, 2025
Chief Complaint: Pulmonary Follow Up
Subjective:
Patient seen and evaluated this morning. On room air breathing comfortably. Continues to feel short of breath but this is improved compared to when he was first admitted. Also has a cough and is bringing up chunks of phlegm with help of the
Acapella. He currently denies chest pain, GARAY, nausea, fevers or chills.
Review of Systems
General: Other (Negative unless mentioned above)
Objective Data
Data Reviewed
Vital Signs / I&O / Oxygen:
Vital Signs
Temp Pulse Resp BP Pulse Ox
98.0 F 60 15 127/82 96
05/21/25 08:00 05/21/25 08:01 05/21/25 08:01 05/21/25 08:00 05/21/25 08:10
SaO2 96
Physical Exam
General: Respiratory Distress (negative), Chills (negative) and Sweats (negative)
HEENT: Normocephalic, Anicteric and Moist Mucous Membranes
Cardiovascular: Irregular Rhythm and Peripheral Edema (negative)
Respiratory: Wheeze (negative), Crackles (Right hemithorax), Rhonchi (negative), Non-Labored Respirations and Stridor (negative)
GI: Soft, Non Distended, Non Tender and Normal Bowel Sounds
Neurology: AO x 3 and Tremors (negative)
Skin: Warm, Dry, Cyanosis (negative) and Jaundice (negative)
Labs/Micro/Reports
Lab Data
05/20/25 06:05
05/20/25 06:05
Microbiology
05/20/25 21:06 Nose Nasal Screen MRSA (PCR) - Final
MRSA not detected - performed by PCR methodology.
05/19/25 20:18 Nasal Swab Influenza Types A & B (BRAULIO) - Final
Influenza B Positive, NAAT
--- NOTE | 2025-05-21 09:58 | W.PN.HOSP.TC ---
Today's Communication/Plan
-
DC vancomycin. Continue with cefepime. Continue Tamiflu.
Continue with Acapella and mucolytics
Assessment / Plan
Assessment / Plan
Acute viral Influenza B POS
NEG Covid
Nl eGFR
- cw Tamiflu 75mg BID
RUL pneumonia -suspected post obstructive .
CT suggest PNA suspect post obstructive ( RUL, RML)
POS productive cough and SOB
HX Lung CA in remission ??
- cont. IV CFP ;MRSA neg - DC Vancomycin
- elevated PCT
- Incentive spirometry
- Patient says he had a follow-up imaging 1 of month ago and reviewed by his primary oncologist at [facility] and apparently no recurrence. Obtained all information- Await call back from his Onc Dr Parker from [place].
- Continue mucolytics and Acapella. Appreciate pulmonary input.
HX COPD
- No exacerbation
- DuoNebs qid and PRN
- c/w Ano Eclipta
Hypothyroid
- c/w LT4
HLD
- on Stain
Anxiety
- on Xanax daily
DVT Px: LMWH
Full code
IP MS
Anticipated Discharge: 24 - 48 hours
Subjective/Interval History
-
Date of Service: May 21, 2025
Slept okay with Benadryl.
Still coughing up green phlegm.
Breathing is comfortable at rest.
No nausea vomiting. No fevers but he had night sweats last night.
Objective Data
-
Vital Signs:
Vital Signs
Temp Pulse Resp BP Pulse Ox
98.0 F 60 15 127/82 96
05/21/25 08:00 05/21/25 08:01 05/21/25 08:01 05/21/25 08:00 05/21/25 08:10
Physical Exam
-
General: Comfortable
Respiratory: Non Labored Respirations and Other (Bronchial breathing right upper lobe); Negative Wheezes or Accessory Resp Muscle Use
Cardiac: Regular Rhythm and S1/S2
GI: Soft
Neuro: AO x 3
[2025-05-21] MEDS: VENTOLIN NEBULES 2.5 MG INH (11:37)
--- NOTE | 2025-05-21 11:39 | CM ---
CM met with pt bedside- droplet precautions for flu
Pt resides with his SO/Nov of 40+ years, no children, no POA
They reside in a 2[address] with 1STE, full flight to 2nd floor
Pt is indep with his ADLs, no DMEs, drives+
Has a working inhaler, no home O2 or nebulizer
Denies financial insecurities
PCP- John Hogue
Rx- [facility]
Per PT eval, no needs
CM to watch for nebulizer needs on dc
Discharge Disposition- home, no VN needs, watch for neb needs
[2025-05-21] MEDS: VENTOLIN NEBULES 1.25 MG INH ×2 (15:21→19:24)
[2025-05-21 16:47] VITALS: BP 115/69
[2025-05-21] MEDS: LOVENOX 40 MG SC (17:30)
[2025-05-21] MEDS: NON-FORMULARY ITEM 1 UNIT INH (19:29)
--- NOTE | 2025-05-21 20:20 | PTCARENOTE ---
This RN was told by PCT that pt requested tylenol for a headache. RAILROAD COMMISSIONER notified. On chart stated pt is allergic to tylenol. Discussed with pt. Pt stated 'I am not allergic to tylenol, I don't know where they got that from.' Pt confirmed he is not
allergic to tylenol. Tylenol removed from pt allergies. RAILROAD COMMISSIONER notified of pt request. Order in for tylenol. Care ongoing.
[2025-05-21] MEDS: TYLENOL 650 MG PO (21:03)
[2025-05-21] MEDS: BENADRYL 50 MG PO (21:04)
[2025-05-21 23:00] VITALS: BP 118/73
[2025-05-22] MEDS: SYNTHROID 125 MCG PO (05:23)
[2025-05-22] MEDS: MAXIPIME 1000 MG IV ×3 (05:23→17:23)
[2025-05-22] MEDS: STERILE WATER FOR INJECTION 10 ML IV ×3 (05:23→17:23)
[2025-05-22 06:39] LABS: Hematocrit 37.7 % (39.0-52.0); Hemoglobin 12.6 g/dL (13.0-18.0); Mean Corp Hgb Conc. 33.4 g/dL (33.0-37.0); Mean Corpuscular Volume 85.3 fL (80.0-94.0); Platelet Count 143 10^3/uL (130-400); Red Cell Dist. Width 13.2 % (11.5-14.5)
[2025-05-22 07:00] VITALS: BP 125/86
[2025-05-22] MEDS: MUCINEX 600 MG PO ×2 (07:51→20:38)
[2025-05-22] MEDS: CRESTOR 20 MG PO (07:51)
[2025-05-22] MEDS: TAMIFLU 75 MG PO ×2 (07:51→20:38)
[2025-05-22] MEDS: SODIUM CHLORIDE 3% FOR INHALATION 1 VIAL INH ×3 (08:05→19:51)
[2025-05-22] MEDS: VENTOLIN NEBULES 1.25 MG INH (08:06)
--- NOTE | 2025-05-22 08:17 | PN.CDI ---
CDI
- -
CDI:
Physician Documentation Request
Admit Date: 05/19/25 23:31
Dear Doctor,
Please review the following and provide your response in the progress notes.
Clinical Indicators:
Height: 6' 6'
Weight: 153lbs
BMI:17.7
Other Clinical Notes:
Pt admitted for Acute viral Influenza B POS and RUL pneumonia -suspected post obstructive .
05/21 Registered Dietitian in Nutrition Panel: 'Current BW: (05/19) 153 lbs 3.54 oz BMI: 17.7 (underweight)...'
If possible, please provide an associated diagnosis related to the abnormal BMI, such as:
BMI < or = to 19:
Underweight
Weight Loss
Cachectic
Anorexia
BMI is not significant
Other
Use of terms such as suspected, likely, concern for, or probable (associated with a specific diagnosis that is being evaluated, monitored, or treated as if it exists) are acceptable and can be coded in the inpatient setting, when documented at the
time of discharge.
Thank you,
Rosie Villeda RN, BSN
CDI Specialist
[facility]
Please use your independent medical judgment in providing your response.
--- NOTE | 2025-05-22 09:23 | W.PN.PUL3 ---
Today's Communication / Plan
-
Patient has chronic right upper lobe + right middle lobe atelectasis as seen on prior CT chest imaging from 04/08/2025 (I personally reviewed these images via patient's portal from [place])
Continue with Tamiflu
Continue antibiotics and would recommend a 7-10-day course
No need for repeat CT Chest imaging at this time given he has chronic atelectatic changes which appear stable
Recommend outpatient follow-up with his lens grinder rough at [place] with repeat imaging in 4 to 6 weeks to assess for improvement in his RML pneumonia
Continue with optimizing pulmonary toilet with nebulized 3% with nebulized albuterol and Acapella
Aspiration precautions
Pulmonary service will continue to follow along; stable for discharge home by tomorrow from pulmonary perspective; he developed palpitations today during exertion with lightheadedness to echo was pending; recommend cardiology consult as had
irregular heartbeat on 05/21 and admission EKG showed atrial fibrillation versus atrial flutter with PVCs
Assessment
-
Assessment: 75-year-old M with PMHx of R-sided NSCLC in remission, anxiety, inflammatory bowel disease, Hx of liver abscess, hypothyroidism, HLD and prediabetes who p/w worsening SOB. He uses Anoro at home and his SOB worsened despite this. He
has been coughing as well. In the ER he was afebrile, HR 84, BP 146/98, RR 22 and SpO2 96% on room air. WBC WNL at 6.5, plt 120, troponin negative x1, procal 0.31, and flu swab was positive for Flu-B. CXR showed severe RUL volume loss with a RUL
consolidation. CT chest showed RUL + RML bronchus occlusion, with left to right mediastinal shift due to atelectasis. Pt given cefepime and DuoNebs in ER, and admitted to the hospitalist service with pulmonary consulted for further recommendations.
Chronic conditions COMPANION: Right lung NSCLC, Hx of COPD, IBD, anxiety, colonic polyps, Hx of hepatic abscess, DDD s/p lumbar discectomy x2, sigmoid diverticulosis, hypothyroidism, HLD, prediabetes
Impression:
#Right upper lobe + right middle lobe atelectasis either due to tumor versus mucous plugging - suspect the latter given chronic atelectasis when compared to outside hospital imaging
#Right middle lobe pneumonia with post-obstructive component
#Acute influenza B
#Hx of right sided NSCLC in remission s/p concurrent chemotherapy + proton radiation therapy and immunotherapy with Imfinzi
#Chronic posttreatment atelectasis of the right upper lobe + right middle lobe (per outpatient CT chest performed 04/08/2025 as well as prior CT chest on 12/03/2024
#COPD on Anoro as an outpatient
#Family Hx of lung cancer (mother and brother)
#Elevated T bili
#Anxiety
Plan:
- Pulmonary toilet is carlson
- Continue nebulized 3% to be given with nebulized albuterol QID; continue chest PT with Acapella
- prn nebulized bronchodilators - not currently bronchospastic
- Patient takes Anoro at home and this can be resumed
- Aspiration precautions
- Mucinex
- Maintain SpO2 88-95% with supplemental O2 as needed
- I personally reviewed the patient's images of his prior CT chest on 04/08/2025, and there is similar right upper lobe bronchus + right middle lobe bronchus occlusion now as he did prior, although he now has a right middle lobe consolidative
opacity which is new. No need to recheck CT chest imaging now given the chronicity of his right upper lobe + right middle lobe atelectasis.
- Continue with course of Tamiflu and finish off a 7-10 day course of antibiotics and rec'd follow up with his lens grinder rough at [place] with repeat imaging in 4-6 weeks to assess for improvement of his RML pneumonia
- Given the chronicity of his right hemithorax atelectatic changes, no need for bronchoscopy at this time as he has stable respiratory status and is continuing to subjectively improve
- Continue oseltamavir
- Given he has postobstructive RML pneumonia, continue with cefepime and follow up respiratory culture (collected 05/20 and shows NGTD)
- MRSA swab negative, vancomycin DC'd (last dose 05/21)
- Check urine antigens for legionella and Strep PNA
- Trend WBC and monitor temperature curve
- Patient sounded irregular on cardiac exam on 05/21, and EKG on 05/19 showed concern for A-fib vs atrial flutter with occasional PVCs
- Check echo
- He had palpitations today while walking to bathroom --> recommend cardiology consult as he may need BB + Eliquis ([id number] score: 2)
- Continue to monitor palpitations and if related to nebulizers, then will need to lower albuterol dose and possibly stop albuterol altogether
- Incentive spirometer encouraged q1hr while awake
- Replete electrolytes with K>4, Mg>2
- Trend H/H and transfuse if needed to keep Hb>7g/dL; keep plt>20k, unless there is concern for bleeding then keep plt>50k
- Maintain euglycemia with goal BG >100 and <180
- DVT ppx: LMWH
Pulmonary service will continue to follow along. He will follow-up with his lens grinder rough and Oncologist (Dr. Miguel Parker) at [place]
Data:
CTA Chest 05/19/2025:
1. COMPLETE OCCLUSION of the RIGHT UPPER LOBE BRONCHUS (either malignancy or endobronchial secretions/mucous plugging) with COMPLETE POSTOBSTRUCTIVE ATELECTASIS of the RIGHT UPPER LOBE.
2. Complete occlusion of the right middle lobe bronchus with severe postobstructive airspace consolidation most suggestive of SEVERE POSTOBSTRUCTIVE RIGHT MIDDLE LOBE PNEUMONIA.
3. Severe hyperinflation of the right lower lobe and left lung containing mild centrilobular emphysema.
4. Moderate to severe left to right mediastinal shift secondary to right lung volume loss.
5. Mild pneumonia in the lingula and left lower lobe.
6. Layering secretions in the trachea (possibly secondary to aspiration).
CT chest with IV contrast 04/08/2025 (performed at [place] -compared to prior CT chest on 12/03/2024): Mild mucus is identified within the trachea as well as the right mainstem bronchus. Similar partial atelectasis of the right upper lobe and
atelectatic changes in the right middle lobe. Partially likely to right sided pleural fluid, likely posttreatment, and is stable. Background changes of moderate centrilobular emphysema as well as peribronchial thickening consistent with chronic
bronchitis. Upper esophagus is dilated and air-filled as well as debris seen and is deviated to the right likely due to posttreatment effect. Multiple low-attenuation liver lesions are again identified, statistically cysts, however few of these
are too small to characterize.
Impression: No evidence of new or progressive disease. Stable posttreatment changes in the right hemithorax.
Total time spent today was 39 minutes for this encounter. Time includes reviewing laboratory test/imaging results, reviewing pertinent medical records, obtaining and reviewing medical history, performing an appropriate exam, ordering medications,
tests and procedures. Time also includes documentation of this encounter, coordinating patient care and communicating with other healthcare professionals. Total time does not include separately billed tests performed on this date of service.
Subjective Data
-
Date of Service:
Date of Service: May 22, 2025
Chief Complaint: Pulmonary Follow Up
Subjective:
Patient seen and evaluated this morning. Currently on room air breathing comfortably. Said earlier when walking to the bathroom he felt lightheaded with heart palpitations and shortness of breath. This resolved and he currently denies these
symptoms.
Review of Systems
General: Other (Negative unless mentioned above)
Objective Data
Data Reviewed
Vital Signs / I&O / Oxygen:
Vital Signs
Temp Pulse Resp BP Pulse Ox
98.5 F 79 16 125/86 96
05/22/25 07:00 05/22/25 08:14 05/22/25 08:14 05/22/25 07:00 05/22/25 08:14
Intake and Output
05/21/25 05/22/25 05/23/25
06:59 06:59 06:59
Intake Total 720 / 720
Balance 720 / 720
SaO2 96
Physical Exam
General: Respiratory Distress (negative), Chills (negative) and Sweats (negative)
HEENT: Normocephalic, Anicteric and Moist Mucous Membranes
Cardiovascular: S1-S2 and Peripheral Edema (negative)
Respiratory: Wheeze (negative), Crackles (Right hemithorax), Rhonchi (negative), Non-Labored Respirations and Stridor (negative)
GI: Soft, Non Distended, Non Tender and Normal Bowel Sounds
Neurology: AO x 3 and Tremors (negative)
Skin: Warm, Dry, Cyanosis (negative) and Jaundice (negative)
Labs/Micro/Reports
Lab Data
05/22/25 05:34
05/20/25 06:05
Microbiology
05/20/25 21:06 Sputum Gram Stain - Preliminary
05/20/25 21:06 Nose Nasal Screen MRSA (PCR) - Final
MRSA not detected - performed by PCR methodology.
05/19/25 20:18 Nasal Swab Influenza Types A & B (BRAULIO) - Final
Influenza B Positive, NAAT
--- NOTE | 2025-05-22 09:52 | CM ---
CM following for discharge planning.
Pt will need a nebulizer for home. Will discuss with patient prior to discharge.
Plan: Pt will return home with his S.O. and plans to drive himself home.
--- NOTE | 2025-05-22 10:18 | W.PN.HOSP.TC ---
Today's Communication/Plan
-
CW Cefepime and Tamiflu
Check ECHO
Orthostatic BP
TSH
Assessment / Plan
Assessment / Plan
Acute viral Influenza B POS
NEG Covid
Nl eGFR
- cw Tamiflu 75mg BID for 5 days
-check CPK due to weakness
RUL pneumonia -suspected post obstructive .
CT suggest PNA suspect post obstructive ( RUL, RML)
POS productive cough and SOB
HX Lung CA in remission ??
- cont. IV CFP ;MRSA neg - DC Vancomycin
- elevated PCT
- Incentive spirometry
- Patient says he had a follow-up imaging 1 of month ago and reviewed by his primary oncologist at [facility] and apparently no recurrence. Discussed with oncology team at [facility]-he had a CT of the chest a month and half ago and apparently was
stable without radiological concern for recurrence.
- Continue mucolytics and Acapella. Appreciate pulmonary input.
-Would treat this as pneumonia with 10 days of antibiotics and would need to follow-up imaging with primary oncology team after antibiotic treatments
HX COPD
- No exacerbation
- DuoNebs qid and PRN
- c/w Ano Eclipta
Atrial tachycardia-patient EKG showed atrial tachycardia. Monitor shows episodes of atrial tachycardia. Patient asymptomatic without palpitations. No prior history of cardiac disease. Check TSH. Check echocardiogram. Continue to follow on
telemetry. Make albuterol neb prn from [facility].
Hypothyroid
- c/w LT4
HLD
- on Stain
Anxiety
- on Xanax daily
DVT Px: LMWH
Full code
IP MS
Anticipated Discharge: 24 - 48 hours
Subjective/Interval History
-
Date of Service: May 22, 2025
Today he is feeling tired, fatigued and dizzy.
Shortness of breath with exertion. Pleuritic chest pain in the right upper lung.
No fever or chills today.
No nausea or vomiting.
Denies any palpitations or prior history of cardiac disease
Objective Data
-
Labs:
Laboratory Results
05/22/25
05:34
WBC 4.5 L
Hgb 12.6 L
Hct 37.7 L
Plt Count 143 D
Vital Signs:
Vital Signs
Temp Pulse Resp BP Pulse Ox
98.5 F 79 16 125/86 96
05/22/25 07:00 05/22/25 08:14 05/22/25 08:14 05/22/25 07:00 05/22/25 08:14
I&O
05/21/25 05/22/25 05/23/25
06:59 06:59 06:59
Intake Total 720 / 720
Balance 720 / 720
Physical Exam
-
General: No Apparent Distress
HEENT: Moist Mucous Membranes
Respiratory: Non Labored Respirations; Negative Wheezes or Accessory Resp Muscle Use
Cardiac: S1/S2 and Irregular Rhythm (Atrial tachycardia)
GI: Soft
Musculoskeletal: No Edema
Neuro: AO x 3
Psych: Calm
Data Reviewed
-
Labs: Labs Reviewed by me
[2025-05-22 11:00] VITALS: BP 135/79
[2025-05-22 14:40] VITALS: BP 113/69; BP 123/84; PULSE 87
[2025-05-22] MEDS: SODIUM CHLORIDE 3% FOR INHALATION INH (15:05)
[2025-05-22] MEDS: LOVENOX 40 MG SC (17:23)
[2025-05-22 19:00] VITALS: BP 138/68
[2025-05-22] MEDS: DUONEB 3 ML INH (19:51)
[2025-05-22] MEDS: NON-FORMULARY ITEM 1 UNIT INH (19:55)
[2025-05-22] MEDS: BENADRYL 50 MG PO (21:11)
[2025-05-22 22:51] VITALS: BP 136/81
[2025-05-23] MEDS: STERILE WATER FOR INJECTION 10 ML IV ×3 (00:16→12:15)
[2025-05-23] MEDS: MAXIPIME 1000 MG IV ×3 (00:16→12:17)
[2025-05-23 00:46] VITALS: BP 132/78
[2025-05-23 03:00] VITALS: BP 141/60
[2025-05-23] MEDS: SYNTHROID 112 MCG PO (05:57)
[2025-05-23 06:33] LABS: Blood Urea Nitrogen 13 mg/dl (9-20); Calcium 8.5 mg/dl (8.4-10.2); Carbon Dioxide 26 mmol/L (22-30); Chloride 109 mmol/L (98-107); Estimated Creatinine Clearance 88 ml/min; Glucose 102 mg/dl (70-99); Potassium 3.9 mmol/L (3.5-5.1); Sodium 139 mmol/L (135-145); eGFR > 60.00
[2025-05-23 07:05] LABS: TSH 2.74 uIU/ml (0.47-4.68)
[2025-05-23 07:50] VITALS: BP 135/70
[2025-05-23] MEDS: SODIUM CHLORIDE 3% FOR INHALATION 1 VIAL INH ×2 (07:54→11:03)
[2025-05-23] MEDS: DUONEB 3 ML INH ×2 (07:54→11:03)
[2025-05-23] MEDS: MUCINEX 600 MG PO (09:02)
[2025-05-23] MEDS: CRESTOR 20 MG PO (09:03)
[2025-05-23] MEDS: TAMIFLU 75 MG PO (09:03)
--- NOTE | 2025-05-23 09:30 | W.PN.PUL3 ---
Today's Communication / Plan
-
Patient has chronic right upper lobe + right middle lobe atelectasis as seen on prior CT chest imaging from 04/08/2025 (I personally reviewed these images via patient's portal from [place])
Continue with Tamiflu
Continue antibiotics and would complete a 7-10-day course
No need for repeat CT Chest imaging at this time given he has chronic atelectatic changes which appear stable
Recommend outpatient follow-up with his auto body straightener at [place] with repeat imaging in 4 to 6 weeks to assess for improvement in his RML pneumonia
Continue with optimizing pulmonary toilet with nebulized 3% with nebulized albuterol and Acapella
Aspiration precautions
He developed palpitations yesterday during exertion with lightheadedness; echo with mild-moderate MR with small pericardial effusion, and preserved biventricular size and function; recommend cardiology consult as had irregular heartbeat on 05/21 and
admission EKG showed atrial fibrillation versus atrial flutter with PVCs - pt will see Cardiology in office
Pt being prepared for discharge home. He will follow-up with his auto body straightener and Oncologist (Dr. Miguel Parker) at [place]. No additional recommendations. Pulmonary service will now sign off. Please call back with any questions or concerns.
Assessment
-
Assessment: 75-year-old M with PMHx of R-sided NSCLC in remission, anxiety, inflammatory bowel disease, Hx of liver abscess, hypothyroidism, HLD and prediabetes who p/w worsening SOB. He uses Anoro at home and his SOB worsened despite this. He
has been coughing as well. In the ER he was afebrile, HR 84, BP 146/98, RR 22 and SpO2 96% on room air. WBC WNL at 6.5, plt 120, troponin negative x1, procal 0.31, and flu swab was positive for Flu-B. CXR showed severe RUL volume loss with a RUL
consolidation. CT chest showed RUL + RML bronchus occlusion, with left to right mediastinal shift due to atelectasis. Pt given cefepime and DuoNebs in ER, and admitted to the hospitalist service with pulmonary consulted for further recommendations.
Chronic conditions CONTROL SPECIALIST: Right lung NSCLC, Hx of COPD, IBD, anxiety, colonic polyps, Hx of hepatic abscess, DDD s/p lumbar discectomy x2, sigmoid diverticulosis, hypothyroidism, HLD, prediabetes
Impression:
#Right upper lobe + right middle lobe atelectasis either due to tumor versus mucous plugging - suspect the latter given chronic atelectasis when compared to outside hospital imaging
#Right middle lobe pneumonia with post-obstructive component
#Acute influenza B
#Hx of right sided NSCLC in remission s/p concurrent chemotherapy + proton radiation therapy and immunotherapy with Imfinzi
#Chronic posttreatment atelectasis of the right upper lobe + right middle lobe (per outpatient CT chest performed 04/08/20[address] as well [address] prior [address] chest on 12/03/2024
#COPD on Anoro as an outpatient
#Family Hx of lung cancer (mother and brother)
#Elevated T bili
#Anxiety
Plan:
- Pulmonary toilet is [place]
- Continue nebulized 3% to be given with nebulized albuterol QID; continue chest PT with Acapella
- prn nebulized bronchodilators - not currently bronchospastic
- Patient takes Anoro at home - resumed
- Aspiration precautions
- Mucinex
- Maintain SpO2 88-95% with supplemental O2 as needed
- I personally reviewed the patient's images of his prior CT chest on 04/08/2025, and there is similar right upper lobe bronchus + right middle lobe bronchus occlusion now as he did prior, although he now has a right middle lobe consolidative
opacity which is new. No need to recheck CT chest imaging now given the chronicity of his right upper lobe + right middle lobe atelectasis.
- Continue with course of Tamiflu and finish off a 7-10 day course of antibiotics and rec'd follow up with his auto body straightener at [place] with repeat imaging in 4-6 weeks to assess for improvement of his RML pneumonia
- Given the chronicity of his right hemithorax atelectatic changes, no need for bronchoscopy at this time as he has stable respiratory status and is continuing to subjectively improve
- Continue oseltamavir
- Given he has postobstructive RML pneumonia, continue with cefepime and follow up respiratory culture (collected 05/20 and shows NGTD)
- MRSA swab negative, vancomycin DC'd (last dose 05/21)
- Check urine antigens for legionella and Strep PNA
- Trend WBC and monitor temperature curve
- Patient sounded irregular on cardiac exam on 05/21, and EKG on 05/19 showed concern for A-fib vs atrial flutter with occasional PVCs
- Echo on 05/22/2025 showed normal biventricular size and function with mild-moderate eccentric MR; mildly elevated PASP of 35-40mmHg; small anterior pericardial effusion without tamponade physiology
- He had palpitations yesterday while walking to bathroom --> recommend cardiology consult as he may need BB +/- Eliquis (if A-fib, then his [id number] score is 2) --> pt will see them as an outpatient
- Continue to monitor palpitations and if related to nebulizers, then will need to lower albuterol dose and possibly stop albuterol altogether
- Incentive spirometer encouraged q1hr while awake
- Replete electrolytes with K>4, Mg>2
- Trend H/H and transfuse if needed to keep Hb>7g/dL; keep plt>20k, unless there is concern for bleeding then keep plt>50k
- Maintain euglycemia with goal BG >100 and <180
- DVT ppx: LMWH
Pt being prepared for discharge home. He will follow-up with his auto body straightener and Oncologist (Dr. Miguel Parker) at [place]. No additional recommendations. Pulmonary service will now sign off. Please call back with any questions or concerns.
Data:
CTA Chest 05/19/2025:
1. COMPLETE OCCLUSION of the RIGHT UPPER LOBE BRONCHUS (either malignancy or endobronchial secretions/mucous plugging) with COMPLETE POSTOBSTRUCTIVE ATELECTASIS of the RIGHT UPPER LOBE.
2. Complete occlusion of the right middle lobe bronchus with severe postobstructive airspace consolidation most suggestive of SEVERE POSTOBSTRUCTIVE RIGHT MIDDLE LOBE PNEUMONIA.
3. Severe hyperinflation of the right lower lobe and left lung containing mild centrilobular emphysema.
4. Moderate to severe left to right mediastinal shift secondary to right lung volume loss.
5. Mild pneumonia in the lingula and left lower lobe.
6. Layering secretions in the trachea (possibly secondary to aspiration).
CT chest with IV contrast 04/08/2025 (performed at [place] -compared to prior CT chest on 12/03/2024): Mild mucus is identified within the trachea as well as the right mainstem bronchus. Similar partial atelectasis of the right upper lobe and
atelectatic changes in the right middle lobe. Partially likely to right sided pleural fluid, likely posttreatment, and is stable. Background changes of moderate centrilobular emphysema as well as peribronchial thickening consistent with chronic
bronchitis. Upper esophagus is dilated and air-filled as well as debris seen and is deviated to the right likely due to posttreatment effect. Multiple low-attenuation liver lesions are again identified, statistically cysts, however few of these
are too small to characterize.
Impression: No evidence of new or progressive disease. Stable posttreatment changes in the right hemithorax.
(Patient was seen and evaluated on 05/23/2025): Total time spent today was 27 minutes for this encounter. Time includes reviewing laboratory test/imaging results, reviewing pertinent medical records, obtaining and reviewing medical history,
performing an appropriate exam, ordering medications, tests and procedures. Time also includes documentation of this encounter, coordinating patient care and communicating with other healthcare professionals. Total time does not include separately
billed tests performed on this date of service.
Subjective Data
-
Date of Service:
Date of Service: May 23, 2025
Chief Complaint: Pulmonary Follow Up
Subjective:
Pt seen this AM. He feels well today. No SOB or chest pain. Denies abd pain, N/V/f/c.
Review of Systems
General: Other (negative unless mentioned above)
Objective Data
Data Reviewed
Vital Signs / I&O / Oxygen:
Vital Signs
Temp Pulse Resp BP Pulse Ox
98.2 F 76 16 135/70 97
05/23/25 07:50 05/23/25 07:55 05/23/25 07:55 05/23/25 07:50 05/23/25 07:50
Intake and Output
05/22/25 05/23/25 05/24/25
06:59 06:59 06:59
Intake Total 1220 / 1220
Balance 1220 / 1220
SaO2 97
Physical Exam
General: Respiratory Distress (negative), Comfortable, Chills (negative) and Sweats (negative)
HEENT: Normocephalic, Anicteric and Moist Mucous Membranes
Cardiovascular: S1-S2 and Peripheral Edema (negative)
Respiratory: Wheeze (negative), Crackles (Right hemithorax), Rhonchi (negative), Non-Labored Respirations and Stridor (negative)
GI: Soft, Non Distended, Non Tender and Normal Bowel Sounds
Neurology: AO x 3 and Tremors (negative)
Skin: Warm, Dry, Cyanosis (negative) and Jaundice (negative)
Labs/Micro/Reports
Lab Data
05/22/25 05:34
05/23/25 05:47
Microbiology
05/20/25 21:06 Sputum Respiratory Culture - Final
Usual Respiratory Elly
05/20/25 21:06 Sputum Gram Stain - Final
05/20/25 21:06 Nose Nasal Screen MRSA (PCR) - Final
MRSA not detected - performed by PCR methodology.
--- NOTE | 2025-05-23 10:48 | W.PN.HOSP.TC ---
Addendum entered and electronically signed by George Michel MD 05/25/25 16:07:
BMI 17.7 suggestive of underweight
Original Note:
Today's Communication/Plan
-
Cardiology opinion
DC
Assessment / Plan
Assessment / Plan
Acute viral Influenza B POS
NEG Covid
Nl eGFR
- cw Tamiflu 75mg BID for 5 days
-CPK OK
RUL pneumonia -suspected post obstructive .
CT suggest PNA suspect post obstructive ( RUL, RML)
POS productive cough and SOB
HX Lung CA in remission ??
- elevated PCT
- Patient says he had a follow-up imaging 1 of month ago and reviewed by his primary oncologist at [facility] and apparently no recurrence. Discussed with oncology team at [facility]-he had a CT of the chest a month and half ago and apparently was
stable without radiological concern for recurrence.
- Continue mucolytics and Acapella. Appreciate pulmonary input.
-Would treat this as pneumonia with 10 days of antibiotics and would need to follow-up imaging with primary oncology team after antibiotic treatments. Switch to oral Cipro 500mg po bid for 6 days.QTc was ok on adx.
HX COPD
- No exacerbation
- c/w Ano Eclipta
Paroxysmal Atrial tachycardia-patient EKG showed atrial tachycardia. Monitor shows episodes of atrial tachycardia. Patient asymptomatic without palpitations. No prior history of cardiac disease. TSH ok. Echo shows EF of 60 to 65%, mild to
moderate MR, small anterior pericardial effusion. I suspect it may be secondary to his acute respiratory illness but he does have abnormal structural lung disease from his prior radiation treatments. I will obtain cardiology opinion regarding role
of prolonged auto technician.
Will consider low dose cardizem for rate control. Avoid BB due to COPD.
Hypothyroid
- c/w LT4
HLD
- on Stain
Anxiety
- on Xanax daily
DVT Px: LMWH
Full code
IP MS
Anticipated Discharge: Today
Subjective/Interval History
-
Date of Service: May 23, 2025
Feels better.
Decreased sputum production.
No fevers. No further sweats.
Denies SOB or CP today.
No nausea or vomiting.
Objective Data
-
Labs:
Laboratory Results
05/23/25
05:47
Sodium 139
Potassium 3.9
Chloride 109 H
Carbon Dioxide 26
BUN 13
Creatinine 0.7
Glucose 102 H
Calcium 8.5
Vital Signs:
Vital Signs
Temp Pulse Resp BP Pulse Ox
98.2 F 76 16 135/70 97
05/23/25 07:50 05/23/25 07:55 05/23/25 07:55 05/23/25 07:50 05/23/25 07:50
I&O
05/22/25 05/23/25 05/24/25
06:59 06:59 06:59
Intake Total 1220 / 1220
Balance 1220 / 1220
Physical Exam
-
General: No Apparent Distress
Respiratory: Non Labored Respirations and Other (RUL bronchial breathing); Negative Wheezes or Accessory Resp Muscle Use
Cardiac: S1/S2, Irregular Rhythm (PAT on monitor) and Tachycardic
GI: Soft
Neuro: AO x 3
Data Reviewed
-
Medical Tests (Nuc Med, Echo etc): Report Reviewed by me (ECHO)
[2025-05-23 11:45] VITALS: BP 124/71
--- NOTE | 2025-05-23 12:04 | CM ---
Insulation Board Head Saw Operator requested a script for a Nebulizer; patient informed that he can get the nebulizer at [facility]; [address] [place] [address]; they have them in stock. Patient's nurse notified via tiger text
Plan: Discharge to home today; patient reported a friend will transport home
[2025-05-23] MEDS: NON-FORMULARY ITEM 10 MG PO (12:12)
[2025-05-23] MEDS: CARDIZEM CD 180 MG PO (12:14)
--- NOTE | 2025-05-23 14:08 | PTCARENOTE ---
Rn acute coordinator- Patient cleared for d/c. Reviewed discharge instructions. Patient waiting in his room until his SO comes to transport patient to his car.
== END 2025-05-23 15:00 | disposition home or self-care (01) | DRG 194 ==
LOC: 3 WEST ACU 23:31
PROVIDERS: Emergency Medicine; Physician Assistant; ADMITTING PHYSICIAN Internal Medicine; ATTENDING PHYSICIAN Internal Medicine; EMERGENCY PHYSICIAN Emergency Medicine; FAMILY PHYSICIAN Family Medicine; OTHER PHYSICIAN Internal Medicine Critical Care Medicine
DX: J11.08 Influenza due to unidentified influenza virus with specified pneumonia (principal); I47.19 Other supraventricular tachycardia; Z68.1 Body mass index [BMI] 19.9 or less, adult; J98.11 Atelectasis; F17.200 Nicotine dependence, unspecified, uncomplicated; J18.9 Pneumonia, unspecified organism; Z11.52 Encounter for screening for COVID-19; Z85.118 Personal history of other malignant neoplasm of bronchus and lung; E03.9 Hypothyroidism, unspecified; F41.9 Anxiety disorder, unspecified; R63.6 Underweight
CPT/HCPCS: 71045; 71046; 71275; 80048; 80053; 82550; 83605; 83880; 84145; 84443; 84484; 85025; 85027; 87070; 87205; 87502; 87641; 87811; 93005; 93306; 94640; 94667; 94668; 96374; 97116; 97162; 99285; Q9967

== ENCOUNTER → 2025-06-14 10:06 | Outpatient (REF) | payer MEDICARE, SELFPAY | LOC: RCS 10:06 | PROVIDERS: ATTENDING PHYSICIAN Family Medicine | DX: I47.19 Other supraventricular tachycardia (principal); I49.1 Atrial premature depolarization | CPT/HCPCS: 93225; 93226 ==

== ENCOUNTER 2025-09-12 11:58 | Emergency (ER) | payer MEDICARE, SELFPAY ==
[2025-09-12 12:07] VITALS: BP 142/91
[2025-09-12 13:08] LABS: Urine Character Clear (Clear)
[2025-09-12 13:47] LABS: Urine Squamous Cell 0-2 /LPF (Few)
[2025-09-12 14:06] VITALS: BP 135/80
--- NOTE | 2025-09-12 14:06 | ED.GENMED ---
History of Present Illness
General
Chief Complaint: Male Genito-Urinary Symptoms
Source: patient
Exam Limitations: none
Time Seen by Provider: 09/12/25 13:24
Nursing documentation reviewed up to this point in time: agreed with
History of Present Illness
History of Present Illness:
Patient is a 75-year-old male with history of lung CA who presents to the emergency department with inability to urinate. Patient states that he frequently struggles with urinary hesitancy secondary to his known BPH. He reports that he urinated
prior to going to sleep last night and seemed at his baseline. However, he did not use the bathroom once throughout the night which is very atypical for him. When he woke this morning, he had significant urinary urgency however was unable to
urinate. He has mild lower abdominal pain. No fever or chills. No severe back pain.
He does have a history of benign prostatic hypertrophy s/p multiple biopsies that have always resulted benign. He has never required a urinary catheter previously. He takes alfuzosin daily as prescribed by his primary care provider. He has not
seen a urologist in over 1 year.
No other concerns today.
Past History
Past History
ED Past Medical History: Other (IBS, back pain)
Social History
Tobacco: Smoker
Living: with family
Employment: Retired
Review of Systems
Review of Systems
Allergies reviewed?: Yes
All Other Systems: ROS reviewed and negative except as documented in HPI and ROS
Phy Exam
Physical Exam
Physical Exam:
Vitals: Patient's vital signs are stable. Afebrile
General: Patient is well appearing, no acute distress. Nontoxic appearing
Skin: Warm and dry, no rashes or lesions
Head: Normocephalic, atraumatic
Eyes: Sclera nonicteric.
Throat: Protecting airway
Neck: Normal ROM
Cardiac: Regular rate and rhythm, no murmurs.
Pulm: Normal respiratory effort. Lungs clear bilaterally
Abdomen: Nondistended. Abdomen soft and nontender.
Extremities: No evidence of cyanosis or edema
Neuro: AAOx3. Grossly intact.
Psychiatric: Normal affect.
Course
Orders/Labs/Results
Orders:
Orders
09/12/25 12:50
Urinalysis Urgent
Date Specimen was Collected: 09/12/25
Time Specimen was Collected: 12:48
Urine Microscopic Urgent
Date Specimen was Collected: 09/12/25
Time Specimen was Collected: 12:48
Abnormal Lab Results
09/12/25
12:50
Urine Occult Blood 2+ A
(Negative)
Urine RBC 7-10 A /HPF
(0-2)
Vital Signs
Pulse: 82
Initial and Last Documented VS:
Initial Vital Signs
Temp Pulse Resp BP Pulse Ox
98.1 F 118 16 142/91 98
09/12/25 12:07 09/12/25 12:07 09/12/25 12:07 09/12/25 12:07 09/12/25 12:07
Last Documented Vital Signs
Temp Pulse Resp BP Pulse Ox
98.1 F 82 16 135/80 98
09/12/25 12:07 09/12/25 14:06 09/12/25 12:07 09/12/25 14:06 09/12/25 14:06
MDM/Problems Addressed
Differential Diagnosis Includes:
Not limited to: Urinary retention, cystitis, BPH, etc.
MDM/Problems Addressed:
75 year-old male presents in acute urinary retention. Unable to urinate since last night. Mild lower abdominal discomfort and urinary urgency. No fevers or infectious symptoms. Vitals stable.
Prior to my evaluation, a bladder scan was obtained by RN which revealed approximately 800 cc of urine in bladder. A Serrano catheter was placed without difficulty draining approximately 900 cc clear urine.
Patient feels complete improvement in symptoms by my evaluation. His urinalysis shows no evidence of infection.
Urinary retention likely secondary to BPH, as he has known history. He already takes Alfuzosin. Stable for discharge with outpatient urology follow-up. Return precautions discussed.
Chronic conditions affecting care:
BPH
Acute Exacerbation and/or Progression of Chronic Illness:
Acute urinary retention likely secondary to BPH
*Pulse Oximetry
SaO2: 98
Oxygen Mode of Delivery: Room air
Patient hypoxic: no
*EKG
Interpreted by ED Provider?: NA
*Dip Painter Interpretation
Rate: Dip Painter- N/A
*Critical Care Note
Total Time (30-74mins, 75-104mins- exclusive of procedures): Not Applicable
ED Attending Note
-
Portions of this chart may have been created with voice recognition software.� Occasional wrong word or��sound alike� substitutions may have occurred due to the inherent limitations of voice recognition software.
Discharge Plan
Departure
Patient Disposition: Home (Routine Discharge)
Date of Disposition: 09/12/25
Time of Disposition: 14:08
Patient with high blood pressure during this ER visit?: Yes
Discharge Problem:
Acute urinary retention
Instructions: How to Care for Your Serrano Catheter, Male, Urinary Retention (DC), BLOOD PRESSURE
Prescriptions:
No Action
ibuprofen 400 MG tablet
400 mg PO DAILYPRN PRN (Reason: mild pain)
alprazolam 0.25 mg Tablet
0.25 mg PO DAILYPRN PRN (Reason: anxiety)
levothyroxine 125 mcg Tablet
125 mcg PO Q48H
Rx Instructions:
oppsite of 112mcg
levothyroxine 112 mcg Tablet
112 mcg PO Q48H
Rx Instructions:
oppsite of 125mcg
rosuvastatin 20 mg Tablet
20 mg PO DAILY
umeclidinium-vilanterol [Anoro Ellipta] 62.5-25 mcg/actuation Blister With Device
1 inh INHALATION R QPM
alfuzosin 10 mg Tablet Extended Release 24 Hr
10 mg PO DAILY
diltiazem HCl 180 mg Capsule,Extended Release 24hr
180 mg PO DAILY Qty: 30 0RF
guaifenesin 600 mg Tablet Extended Release 12hr
600 mg PO Q12 Qty: 14 0RF
benzonatate 100 mg Capsule
100 mg PO TIDPRN PRN (Reason: cough) Qty: 14 0RF
oseltamivir 75 mg Capsule
75 mg PO BID Qty: 2 0RF
acetaminophen 325 mg Tablet
650 mg PO Q4HPRN PRN (Reason: headache,mild pain,fever>100.4) Qty: 1 0RF
ciprofloxacin HCl 500 mg tablet
500 mg PO BID Qty: 12 0RF
ipratropium-albuterol 0.5 mg-3 mg(2.5 mg base)/3 mL solution for nebulization
3 ml inhalation Q8H PRN (Reason: shortness of breath or wheezing) Qty: 90 0RF
phenazopyridine [Pyridium] 200 mg tablet
200 mg PO PC PRN (Reason: Pain) Qty: 5 0RF
cephalexin 500 mg capsule
500 mg PO Q6H 7 Days Qty: 28 0RF
Referrals:
Shorty Lee MD [Active, Urology] - Next open appointment
John Hogue DO [Family Provider, Family Practice]
Activity Restrictions/Additional Instructions:
RETURN TO THE EMERGENCY DEPARTMENT ANY FEVER, CHILLS, SEVERE ABDOMINAL PAIN, BLOOD IN URINE, NO URINE DRAINING INTO CATHETER BAG, WORSENING IN CURRENT SYMPTOMS, OR ANY OTHER CONCERNS
- As discussed, you were found to be in acute urinary retention today in the emergency department. A Serrano catheter was placed.
- Continue to take your medications as prescribed. Stay well-hydrated.
- Follow-up with urology for further evaluation/management of Serrano catheter. The contact information has been provided for you above.
Monitor your symptoms closely and return to the emergency department with any acute worsening/new symptoms or any other concerns
Interventions
Interventions:
*Risk Screen - Suicide Last Done: 09/12/25 12:07
*General Assessment Last Done: 09/12/25 12:30
*Neglect/Abuse Screening Last Done: 09/12/25 12:07
*ED- Fall Risk Assessment Last Done: 09/12/25 12:30
*ED COVID-19 Vaccine History Last Done: 09/12/25 12:30
*ED Influenza Vaccine History Last Done: 09/12/25 12:30
*Nursing Disposition Last Done: 09/12/25 14:45
ED-Male Genitourinary Assessment Last Done: 09/12/25 12:30
Discharge Date and Time
Discharge Date/Time: 09/12/25 14:45
Print Language: FAROESE
== END 2025-09-12 14:45 | disposition home or self-care (01) ==
LOC: EMR 11:58
PROVIDERS: EMERGENCY PHYSICIAN Student in an Organized Health Care Education/Training Program; FAMILY PHYSICIAN Family Medicine
DX: R33.8 Other retention of urine (principal); N40.1 Benign prostatic hyperplasia with lower urinary tract symptoms; F17.200 Nicotine dependence, unspecified, uncomplicated; K58.9 Irritable bowel syndrome, unspecified; Z46.6 Encounter for fitting and adjustment of urinary device; Z85.118 Personal history of other malignant neoplasm of bronchus and lung
CPT/HCPCS: 99282; 81003; 81015

== ENCOUNTER 2025-09-12 17:31 | Emergency (ER) | payer MEDICARE, SELFPAY ==
[2025-09-12 17:49] VITALS: BP 124/80
--- NOTE | 2025-09-12 21:03 | ED.GENMED ---
History of Present Illness
General
Chief Complaint: Male Genito-Urinary Symptoms
Source: patient and records
Exam Limitations: none
Time Seen by Provider: 09/12/25 20:31
Nursing documentation reviewed up to this point in time: agreed with
History of Present Illness
History of Present Illness:
75-year-old male BPH seen here earlier with retention Serrano was placed negative UA sent home developed hematuria without clot retention minimal pain to tip penis, came in to be evaluated here no fevers no suprapubic pain never needed catheter
previously
Past History
Past History
ED Past Medical History: Cancer and Other (IBS, back pain BPH)
Social History
Tobacco: Smoker
Alcohol: None
Drug: None
Personal:
Living: with family
Employment: Retired
Review of Systems
Review of Systems
All Other Systems: Not applicable
Constitutional: Denies fever or fatigue
ABD/GI: Reports no symptoms
: Reports bleeding
Phy Exam
Physical Exam
Physical Exam:
Physical Exam
General: no apparent distress, not acutely ill
Neck: Midline trach
Heart: Regular
Lungs: no acute respiratory distress.
Abdomen: Nontender Serrano draining Tiburcio-Aid colored urine
Neuro: alert and oriented. no focal neurological deficits
Skin: no rash
Psychiatric: well kept. interactive and cooperative
Extremities: no edema.
Course
Orders/Labs/Results
Orders:
Orders
09/12/25 20:59
Urine Culture Urgent
GERMAN Source: Urine
Specimen Description:
Cephalexin Monohydrate [Keflex] 500 mg PO NOW STA
Phenazopyridine HCl [Pyridium] 200 mg PO NOW STA
Vital Signs
Initial and Last Documented VS:
Initial Vital Signs
Temp Pulse Resp BP Pulse Ox
98.2 F 97 16 124/80 98
09/12/25 17:49 09/12/25 17:49 09/12/25 17:49 09/12/25 17:49 09/12/25 17:49
Last Documented Vital Signs
Temp Pulse Resp BP Pulse Ox
98.2 F 97 16 124/80 98
09/12/25 17:49 09/12/25 17:49 09/12/25 17:49 09/12/25 17:49 09/12/25 17:49
MDM/Problems Addressed
Differential Diagnosis Includes:
Expected bleeding UTI malignancy no signs of clot retention
MDM/Problems Addressed:
Hematuria
Chronic conditions affecting care:
BPH
Acute Exacerbation and/or Progression of Chronic Illness:
BPH
*Pulse Oximetry
SaO2: 98
Oxygen Mode of Delivery: Room air
Patient hypoxic: no
*Critical Care Note
Total Time (30-74mins, 75-104mins- exclusive of procedures): Not Applicable
Update Note
Update Note:
Update no signs of clot retention no blood thinners patient appears comfortable, UA from earlier noted will add a culture tonight consider treating with antibiotics and Pyridium
ED Attending Note
-
Portions of this chart may have been created with voice recognition software.� Occasional wrong word or��sound alike� substitutions may have occurred due to the inherent limitations of voice recognition software.
Discharge Plan
Departure
Patient Disposition: Home (Routine Discharge)
Date of Disposition: 09/12/25
Time of Disposition: 21:01
Patient with high blood pressure during this ER visit?: No
Condition: Good
Discharge Problem:
Hematuria
Instructions: How to Care for Your Serrano Catheter, Male, Blood in the Urine (Hematuria), Adult (DC)
Prescriptions:
New
phenazopyridine [Pyridium] 200 mg tablet
200 mg PO PC PRN (Reason: Pain) Qty: 5 0RF
cephalexin 500 mg capsule
500 mg PO Q6H 7 Days Qty: 28 0RF
No Action
ibuprofen 400 MG tablet
400 mg PO DAILYPRN PRN (Reason: mild pain)
alprazolam 0.25 mg Tablet
0.25 mg PO DAILYPRN PRN (Reason: anxiety)
levothyroxine 125 mcg Tablet
125 mcg PO Q48H
Rx Instructions:
oppsite of 112mcg
levothyroxine 112 mcg Tablet
112 mcg PO Q48H
Rx Instructions:
oppsite of 125mcg
rosuvastatin 20 mg Tablet
20 mg PO DAILY
umeclidinium-vilanterol [Anoro Ellipta] 62.5-25 mcg/actuation Blister With Device
1 inh INHALATION R QPM
alfuzosin 10 mg Tablet Extended Release 24 Hr
10 mg PO DAILY
diltiazem HCl 180 mg Capsule,Extended Release 24hr
180 mg PO DAILY Qty: 30 0RF
guaifenesin 600 mg Tablet Extended Release 12hr
600 mg PO Q12 Qty: 14 0RF
benzonatate 100 mg Capsule
100 mg PO TIDPRN PRN (Reason: cough) Qty: 14 0RF
oseltamivir 75 mg Capsule
75 mg PO BID Qty: 2 0RF
acetaminophen 325 mg Tablet
650 mg PO Q4HPRN PRN (Reason: headache,mild pain,fever>100.4) Qty: 1 0RF
ciprofloxacin HCl 500 mg tablet
500 mg PO BID Qty: 12 0RF
ipratropium-albuterol 0.5 mg-3 mg(2.5 mg base)/3 mL solution for nebulization
3 ml inhalation Q8H PRN (Reason: shortness of breath or wheezing) Qty: 90 0RF
Referrals:
Shorty Lee MD [Active, Urology] - Follow up in 10 days
Activity Restrictions/Additional Instructions:
Bleeding is normal after he have a catheter placed
Return to the ER with inability to void, fevers or severe pain
Antibiotics as prescribed
Pyridium up to 3 times a day for pain with urination--- this medicine can make your urine orange and tears are not
Interventions
Interventions:
*Risk Screen - Suicide Last Done: 09/12/25 17:49
*Neglect/Abuse Screening Last Done: 09/12/25 17:49
Discharge Date and Time
Print Language: HEBREW
[2025-09-12] MEDS: KEFLEX 500 MG PO (21:10)
== END 2025-09-12 21:23 | disposition home or self-care (01) ==
LOC: EMR 17:31
PROVIDERS: EMERGENCY PHYSICIAN Emergency Medicine; FAMILY PHYSICIAN Family Medicine
DX: R31.9 Hematuria, unspecified (principal); N40.0 Benign prostatic hyperplasia without lower urinary tract symptoms; K58.9 Irritable bowel syndrome, unspecified; F17.200 Nicotine dependence, unspecified, uncomplicated
CPT/HCPCS: 99282; 87086